=== PATIENT | male | born 1990 | race Caucasian/White ===

== ENCOUNTER 2020-08-05 18:06 | Emergency (ER) | payer MEDICAID ==
[~2020-08-05] VITALS: Ht 190.5 cm; Wt 131.8 kg
[2020-08-05] MEDS ORDERED: lisinopril 10 MG tablet PO STA (18:31)
[2020-08-05] MEDS ORDERED: LISI40TA13 PO (18:38)
--- NOTE | 2020-08-05 18:38 | NUR ---
HERE FOR REFILL ON HIS BLOOD PRESSURE MEDICATION LISINOPRIL
[2020-08-05 19:02] VITALS: BP 120/78
== END 2020-08-05 19:05 | disposition home or self-care (01) ==
LOC: ER 18:08
DX: Z76.0 Encounter for issue of repeat prescription (principal); Z79.899 Other long term (current) drug therapy
CPT/HCPCS: 99281; 99283